=== PATIENT | male | born 1995 | race American Indian/Alaskan Native ===

== ENCOUNTER 2021-04-03 06:39 | Emergency (ER) | payer SELFPAY ==
[2021-04-03] MEDS ORDERED: LIDOCAINE-MPF (1%) 10 MG/1 ML VIAL 5 ML INFILTRATI ONE (08:36)
--- NOTE | 2021-04-03 08:37 | Emergency Department Report ---
ED Male HPI - General Chief complaint: Urogenital-Male Stated complaint: PAINFUL URINATION Time Seen by Provider: 04/03/21 08:18 Source: patient Mode of arrival: Ambulatory Limitations: No Limitations - History of Present Illness Initial comments: 25-year-old -[place] male presents to the ER today with complaints of dysuria. Onset 2 days ago. He reports associated clear penile discharge, urinary frequency and urgency. He denies any abdominal pain, back pain or flank pain, testicular pain or swelling. Patient sexual preference is homosexual. Reports new sexual partner in the past month. He denies any known STD exposure. MD Complaint: penile discharge, dysuria -: days(s) (2) - Related Data Previous Rx's Medication Instructions Recorded Last Taken Type DOXYCYCLINE Hyclate [Vibramycin 100 mg PO Q12HR #14 capsule 04/03/21 Unknown Rx CAP] Allergies Allergy/AdvReac Type Severity Reaction Status Date / Time No Known Allergies Allergy Verified 04/03/21 07:50 ED Review of Systems ROS: Stated complaint: PAINFUL URINATION Other details as noted in HPI Comment: All other systems reviewed and negative Gastrointestinal: denies: abdominal pain, nausea, diarrhea Genitourinary: urgency, dysuria, frequency, discharge. denies: hematuria, testicular pain, testicular mass Musculoskeletal: denies: back pain, joint swelling, arthralgia Neurological: denies: headache, weakness, paresthesias ED Past Medical Hx - Past Medical History Previous Medical History?: No - Surgical History Past Surgical History?: No - Medications Home Medications: Home Medications Medication Instructions Recorded Confirmed Last Taken Type DOXYCYCLINE Hyclate [Vibramycin 100 mg PO Q12HR #14 capsule 04/03/21 Unknown Rx CAP] ED Physical Exam - General Limitations: No Limitations General appearance: alert, in no apparent distress - Head Head exam: Present: atraumatic, normocephalic, normal inspection - Eye Eye exam: Present: normal appearance, PERRL, EOMI Pupils: Present: normal accommodation - Respiratory Respiratory exam: Absent: respiratory distress - Cardiovascular Cardiovascular Exam: Present: regular rate - GI/Abdominal GI/Abdominal exam: Present: soft. Absent: distended, tenderness, guarding, rebound - Neurological Exam Neurological exam: Present: alert, oriented X3, CN II-XII intact, normal gait - Psychiatric Psychiatric exam: Present: normal affect, normal mood - Skin Skin exam: Present: intact ED Course Vital Signs 04/03/21 04/03/21 07:51 10:38 Temperature 98.6 F 97.8 F Pulse Rate 102 H 78 Respiratory 16 16 Rate Blood Pressure 139/81 119/69 [Left] O2 Sat by Pulse 99 99 Oximetry Critical care attestation.: If time is entered above; I have spent that time in minutes in the direct care of this critically ill patient, excluding procedure time. ED Disposition Clinical Impression: Urethritis Disposition: HOME / SELF CARE / HOMELESS Is pt being admited?: No Does the pt Need Aspirin: No Condition: Stable Instructions: Urethritis, Adult Additional Instructions: I recommend that you take the doxycycline as prescribed and to completion. I recommend no sexual intercourse for about 7 days after completion of abx and I do recommend that your partner also gets tested and treated. Increase your water intake. Return to ED if worse. Prescriptions: DOXYCYCLINE Hyclate [Vibramycin CAP] 100 mg PO Q12HR #14 capsule Referrals: [facility] [Provider Group] - 3-5 Days Forms: STI Treatment and Prevention Time of Disposition: 09:55
[2021-04-03 10:11] LABS: Bilirubin,Urine NEG (Negative); Blood,Urine NEG (Negative); Color,Urine Yellow (Yellow); Urobilinogen,Urine < 2.0 mg/dL (<2.0)
[2021-04-03 10:13] LABS: Amorphous Crystals,Urine 4+
[2021-04-03 10:41] VITALS: BP 119/69
== END 2021-04-03 10:41 | disposition home or self-care (01) ==
LOC: ED 06:39
DX: N34.2 Other urethritis (principal)
CPT/HCPCS: 81001; 96372; 99283; J0696; J3490

== ENCOUNTER 2021-10-16 09:58 | Emergency (ER) | payer SELFPAY ==
[2021-10-16] MEDS ORDERED: dexAMETHasone 20 MG/5 ML VIAL IV ONE (14:10)
[2021-10-16] MEDS ORDERED: CLINDAMYCIN 600 MG/50 mL 600 MG/50 ML BAG IV ONE (14:10)
[2021-10-16] MEDS ORDERED: ONDANSETRON 4 MG/2 ML INJ IV ONE (14:10)
[2021-10-16] MEDS ORDERED: SODIUM CHLORIDE 0.9% 1000 ML 1,000 ML IV ONE (14:10)
[2021-10-16] MEDS ORDERED: MORPHINE 4 MG/1 ML INJ IV ONE (14:10)
--- NOTE | 2021-10-16 14:14 | Emergency Department Report ---
ED ENT HPI - General Chief complaint: Sore Throat Stated complaint: SORT THROAT Time Seen by Provider: 10/16/21 13:50 Source: patient, EMS Mode of arrival: Ambulatory Limitations: No Limitations - History of Present Illness Initial comments: This is a 26-year-old male nontoxic, well nourished in appearance, no acute signs of distress presents to the ED with c/o of sore throat x several days. Patient describes sore throat as swallowing razer blades. Patient denies any fever, chills, headache, stiff neck, nausea, vomiting, chest pain, shortness of breath, numbness or tingling. Stated has pain with swallowing but denies any difficulties. Patient denies any drooling or hoarseness. Patient is able to tolerate fluids. Patient denies any allergies or significant past medical history. MD complaint: sore throat -: days(s) Location: throat Severity: moderate Severity scale (0 -10): 8 Quality: aching, sharp Consistency: constant Improves with: none Worsens with: swallowing Associated Symptoms: pain with swallowing, sore throat. denies: fever, cough, gum swelling, toothache, tinnitus, hearing loss, discharge from ear, rhinorrhea - Related Data Previous Rx's Medication Instructions Recorded Last Taken Type DOXYCYCLINE Hyclate [Vibramycin 100 mg PO Q12HR #14 capsule 04/03/21 Unknown Rx CAP] Acetaminophen/Codeine [Tylenol 1 tab PO Q6H PRN #12 tab 10/16/21 Unknown Rx /Codeine # 3 tab] Amoxicillin/K Clav Tab [Augmentin 1 tab PO Q12HR #20 tab 10/16/21 Unknown Rx 875 mg] Nystas/Diphen/Xyl Visc/Mylanta 15 ml MM Q6H PRN 5 Days #1 bottle 10/16/21 Unknown Rx [Magic Mouthwash] Prednisone [predniSONE 10 mg 10 mg PO .TAPER #1 10/16/21 Unknown Rx (6-Day Pack, 21 Tabs)] Allergies Allergy/AdvReac Type Severity Reaction Status Date / Time No Known Allergies Allergy Verified 10/16/21 10:04 ED Dental HPI - General Chief complaint: Sore Throat Stated complaint: SORT THROAT Time Seen by Provider: 10/16/21 13:50 Source: patient, EMS Mode of arrival: Ambulatory Limitations: No Limitations - Related Data Previous Rx's Medication Instructions Recorded Last Taken Type DOXYCYCLINE Hyclate [Vibramycin 100 mg PO Q12HR #14 capsule 04/03/21 Unknown Rx CAP] Acetaminophen/Codeine [Tylenol 1 tab PO Q6H PRN #12 tab 10/16/21 Unknown Rx /Codeine # 3 tab] Amoxicillin/K Clav Tab [Augmentin 1 tab PO Q12HR #20 tab 10/16/21 Unknown Rx 875 mg] Nystas/Diphen/Xyl Visc/Mylanta 15 ml MM Q6H PRN 5 Days #1 bottle 10/16/21 Unknown Rx [Magic Mouthwash] Prednisone [predniSONE 10 mg 10 mg PO .TAPER #1 10/16/21 Unknown Rx (6-Day Pack, 21 Tabs)] Allergies Allergy/AdvReac Type Severity Reaction Status Date / Time No Known Allergies Allergy Verified 10/16/21 10:04 ED Review of Systems ROS: Stated complaint: SORT THROAT Other details as noted in HPI Comment: All other systems reviewed and negative Constitutional: denies: chills, fever Eyes: denies: eye pain, eye discharge, vision change ENT: throat pain. denies: ear pain Respiratory: denies: cough, shortness of breath, wheezing Cardiovascular: denies: chest pain, palpitations Endocrine: no symptoms reported Gastrointestinal: denies: abdominal pain, nausea, diarrhea Genitourinary: denies: urgency, dysuria Musculoskeletal: denies: back pain, joint swelling, arthralgia Skin: denies: rash, lesions Neurological: denies: headache, weakness, paresthesias Psychiatric: denies: anxiety, depression Hematological/Lymphatic: denies: easy bleeding, easy bruising ED Past Medical Hx - Medications Home Medications: Home Medications Medication Instructions Recorded Confirmed Last Taken Type DOXYCYCLINE Hyclate [Vibramycin 100 mg PO Q12HR #14 capsule 04/03/21 Unknown Rx CAP] Acetaminophen/Codeine [Tylenol 1 tab PO Q6H PRN #12 tab 10/16/21 Unknown Rx /Codeine # 3 tab] Amoxicillin/K Clav Tab [Augmentin 1 tab PO Q12HR #20 tab 10/16/21 Unknown Rx 875 mg] Nystas/Diphen/Xyl Visc/Mylanta 15 ml MM Q6H PRN 5 Days #1 bottle 10/16/21 Unknown Rx [Magic Mouthwash] Prednisone [predniSONE 10 mg 10 mg PO .TAPER #1 10/16/21 Unknown Rx (6-Day Pack, 21 Tabs)] ED Physical Exam - General Limitations: No Limitations General appearance: alert, in no apparent distress - Head Head exam: Present: atraumatic, normocephalic - Eye Eye exam: Present: normal appearance - Expanded ENT Exam Expanded Mouth exam: Present: normal external inspection. Absent: drooling, trismus, muffled voice Teeth exam: Present: normal inspection Throat exam: Positive: tonsillar erythema (left side), tonsillomegaly (3+ left side), tonsillar exudate (left side) - Neck Neck exam: Present: normal inspection, full ROM, lymphadenopathy (left tonsillar ). Absent: tenderness, meningismus - Respiratory Respiratory exam: Absent: respiratory distress - Cardiovascular Cardiovascular Exam: Present: regular rate - Extremities Exam Extremities exam: Present: full ROM - Back Exam Back exam: Present: full ROM - Neurological Exam Neurological exam: Present: alert, oriented X3, normal gait - Psychiatric Psychiatric exam: Present: normal affect, normal mood - Skin Skin exam: Present: warm, dry, intact, normal color. Absent: rash ED Course Vital Signs 10/16/21 10/16/21 10/16/21 09:58 14:59 16:35 Temperature 98.7 F 98.5 F 97.3 F L Pulse Rate 66 88 81 Respiratory 18 16 16 Rate Blood Pressure 133/89 Blood Pressure 126/84 126/74 [Right] O2 Sat by Pulse 98 100 100 Oximetry - Reevaluation(s) Reevaluation #1: 10/16/21 14:14 Patient is speaking in full sentences with no signs of distress noted. Reevaluation #2: 10/16/21 17:26 Patient is able to tolerate fluids at this time. Pain is under control. - Consultations Consultation #1: 10/16/21 17:25 Patient has been consulted with Dr. Haider about patient history, physical exam, and labs/CT imaging and agrees to ED plan of care and discharge plan of care. ED Medical Decision Making - Lab Data Result diagrams: 10/16/21 14:43 10/16/21 14:43 Lab Results 10/16/21 10/16/21 Range/Units 14:43 14:43 WBC 9.4 (4.5-11.0) K/mm3 RBC 5.24 H (3.65-5.03) M/mm3 Hgb 14.5 (11.8-15.2) gm/dl Hct 43.9 (35.5-45.6) % MCV 84 (84-94) fl MCH 28 (28-32) pg MCHC 33 (32-34) % RDW 14.7 (13.2-15.2) % Plt Count 274 (140-440) K/mm3 Baso % (Auto) Pattern Illustrator Sodium 140 (137-145) mmol/L Potassium 4.0 (3.6-5.0) mmol/L Chloride 102.1 (98-107) mmol/L Carbon Dioxide 26 (22-30) mmol/L Anion Gap 16 mmol/L BUN 10 (9-20) mg/dL Creatinine 0.8 (0.8-1.3) mg/dL Estimated GFR > 60 ml/min BUN/Creatinine Ratio 13 % Glucose 85 (75-100) mg/dL Calcium 8.8 (8.4-10.2) mg/dL - Radiology Data [facility] [address] [place] [address] Cat Scan Report Signed Patient: DWAIN MCCORMICK MR#: [id number] : 1995 Acct:[id number] Age/Sex: 26 / M ADM Date: 10/16/21 Loc: ED Attending Dr: Ordering Physician: KRISTAL MART NP Date of Service: 10/16/21 Procedure(s): CT neck w con Accession Number(s): [id number] cc: KRISTAL MART NP CT neck w con HISTORY: left tonsillar swelling r/o abscess 70ml of [id number] COMPARISON: None. TECHNIQUE: CT of the neck is performed. All CT scans at this location are performed using CT dose reduction for ALARA by means of automated exposure control. FINDINGS: Skull Base: No significant abnormality. Nasopharynx, oropharynx, hypopharynx: No significant abnormality. No mass identified.. Tonsils: There is significant greater than right tonsillar enlargement. No definite organized collection. There is edema seen extending along the lateral oropharyngeal and hypopharyngeal wall with significant enlargement of the left aryepiglottic fold and edema seen in the supraglottic region. The epiglottis is not enlarged. Airway: There is narrowing of the supraglottic airway. Salivary glands: No significant abnormality. Thyroid:No significant abnormality. Lymphatics: There is significant asymmetric to left lymphadenopathy with very enlarged lymph nodes seen in level 2. However, there is lymphadenopathy throughout the left neck to the supraclavicular region. Vasculature: No significant abnormality. Osseous Structures: No evidence of spondylodiscitis. No significant abnormality Additional findings: None. IMPRESSION: 1. There is tonsillitis with significant asymmetric enlargement of the left greater than right palatine tonsils. No drainable abscess identified. However, there is edema extending along the left lateral oropharyngeal and hypopharyngeal wall with associated supraglottitis with significant enlargement of the left aryepiglottic fold resulting in narrowing of the supraglottic airway. Signer Name: Osmar Sosa MD Signed: 10/16/2021 5:08 PM Workstation Name: [id number] Transcribed By: CS Dictated By: Osmar Sosa MD Electronically Authenticated By: Osmar Sosa MD Signed Date/Time: 10/16/211707 DD/ 56 TD/TT: - Medical Decision Making This is a 26-year-old male that presents with tonsillitis and supraglottitis. Patient is stable was examined by me. There is no drooling. Uvula is midline. Patient received clindamycin IV, Decadron and pain medication in the ED. pain is under control at this time during discharge. P.o. challenge has been obtained and patient tolerated well. Vital signs are stable. Patient is not febrile and normal heart rate. Patient was instructed to Follow-up with a primary care and ENT doctor in 3-5 days or if symptoms worsen and continue return to emergency room as soon as possible. At time of discharge, the patient does not seem toxic or ill in appearance. No acute signs of distress noted. Patient agrees to discharge treatment plan of care. No further questions noted by the patient. Critical care attestation.: If time is entered above; I have spent that time in minutes in the direct care of this critically ill patient, excluding procedure time. ED Disposition Clinical Impression: Tonsillitis with exudate, Supraglottitis Disposition: HOME / SELF CARE / HOMELESS Is pt being admited?: No Does the pt Need Aspirin: No Condition: Stable Instructions: Tonsillitis, [id number] Additional Instructions: Follow-up with a primary care and ENT doctor in 3-5 days or if symptoms worsen and continue return to emergency room as soon as possible. Prescriptions: Amoxicillin/K Clav Tab [Augmentin 875 mg] 1 tab PO Q12HR #20 tab Nystas/Diphen/Xyl Visc/Mylanta [Magic Mouthwash] 15 ml MM Q6H PRN 5 Days #1 bottle PRN Reason: Sore Throat Prednisone [predniSONE 10 mg (6-Day Pack, 21 Tabs)] 10 mg PO .TAPER #1 Acetaminophen/Codeine [Tylenol /Codeine # 3 tab] 1 tab PO Q6H PRN #12 tab PRN Reason: Pain , Severe (7-10) Referrals: PRIMARY MD ROYAL [Primary Care Provider] - 3-5 Days CLARICE KWON MD [Staff Physician] - 3-5 Days CARRI BERMUDEZ MD [Referring] - 3-5 Days Forms: Work/School Release Form(ED) Time of Disposition: 17:29
[2021-10-16 15:24] LABS: BUN/Creatinine Ratio 13; Blood Urea Nitrogen 10 mg/dL (9-20); Calcium 8.8 mg/dL (8.4-10.2); Hemolysis Index 0
[2021-10-16 16:18] LABS: Hematocrit 43.9 % (35.5-45.6); Hemoglobin 14.5 gm/dl (11.8-15.2); Mean Corpuscular HGB Conc 33 % (32-34); Mean Corpuscular Volume 84 fl (84-94); Platelet Count 274 K/mm3 (140-440); Red Blood Count 5.24 M/mm3 (3.65-5.03); Red Cell Distribution Width 14.7 % (13.2-15.2)
[2021-10-16 16:43] VITALS: BP 126/74
--- NOTE | 2021-10-16 17:13 | Cat Scan Report ---
CT neck w con HISTORY: left tonsillar swelling r/o abscess 70ml of [id number] COMPARISON: None. TECHNIQUE: CT of the neck is performed. All CT scans at this location are performed using CT dose red uction for ALARA by means of automated exposure control. FINDINGS: Skull Base: No significant abnormality. Nasopharynx, oropharynx, hypopharynx: No significant abnormality. No mass identified.. Tonsils: There is significant greater than right tonsillar enlargement. No definite organized collect ion. There is edema seen extending along the lateral oropharyngeal and hypopharyngeal wall with signi ficant enlargement of the left aryepiglottic fold and edema seen in the supraglottic region. The epig lottis is not enlarged. Airway: There is narrowing of the supraglottic airway. Salivary glands: No significant abnormality. Thyroid:No significant abnormality. Lymphatics: There is significant asymmetric to left lymphadenopathy with very enlarged lymph nodes se en in level 2. However, there is lymphadenopathy throughout the left neck to the supraclavicular douglas on. Vasculature: No significant abnormality. Osseous Structures: No evidence of spondylodiscitis. No significant abnormality Additional findings: None. IMPRESSION: 1. There is tonsillitis with significant asymmetric enlargement of the left greater than right palati ne tonsils. No drainable abscess identified. However, there is edema extending along the left lateral oropharyngeal and hypopharyngeal wall with associated supraglottitis with significant enlargement of the left aryepiglottic fold resulting in narrowing of the supraglottic airway. Signer Name: Osmar Sosa MD Signed: 10/16/2021 5:08 PM Workstation Name: [id number]
[2021-10-16 17:14] LABS: Myelocytes # (Manual) 0.4 K/mm3; Promyelocytes # (Manual) 0.1 K/mm3; Total Cells Counted 100
[2021-10-16 17:25] LABS: RBC Morphology Normal
[2021-10-16 17:26] LABS: Macrocytosis 1+
== END 2021-10-16 18:13 | disposition home or self-care (01) ==
LOC: ED 09:58
DX: J03.90 Acute tonsillitis, unspecified (principal); J04.30 Supraglottitis, unspecified, without obstruction; Z79.899 Other long term (current) drug therapy
CPT/HCPCS: 36415; 70491; 80048; 85007; 85025; 96365; 96375; 99284; J1100; J2270; J2405; J7030; J7502; Q9967